=== PATIENT | female | born 1970 | race Two or more races ===

== ENCOUNTER → 2024-01-25 | Outpatient (CLI) | payer BC ==
[2024-01-25 11:23] LABS: Leuteinizing Hormone 16.7 IU/L
[2024-01-25 12:28] LABS: Follicle Stimulating Hormone 19.21 IU/L (SEE BELOW)
[2024-01-26 08:07] LABS: Estradiol 27.4 pg/mL (.)
== END | disposition home or self-care (01) ==
LOC: LAB 10:20
PROVIDERS: ATTEND Obstetrics & Gynecology
DX: N95.0 Postmenopausal bleeding (principal)
CPT/HCPCS: 36415; 82670; 83001; 83002; 84402; 84403; 84443